=== PATIENT | female | born 1985 | race Caucasian/White ===

== ENCOUNTER 2019-12-31 18:22 | Inpatient (IN) | payer OTHER ==
[~2019-12-31 18:22] MED LIST: Dexamethasone 20 MG/5 ML VIAL ONE; Glycopyrrolate 0.2 MG/ML 5 ML SYRINGE ONE; Lidocaine 1% PF 5 ML VIAL ONE; Ondansetron PF 4 MG/2 ML Vial ONE; PROPOFOL 200 MG/20 ML VIAL ONE; Rocuronium Bromide 10 MG/ML (10ML VIAL) ONE; Succinylcholine Chloride 20 MG/ML 10 ml SYRINGE FS ONE
[2019-12-31] MEDS ORDERED: HYDROmorphone 0.5 MG/0.5 ML SYRINGE ONE (20:45)
[2019-12-31] MEDS ORDERED: Fentanyl 100 MCG/2 ML VIAL ONE (20:45)
[2019-12-31] MEDS ORDERED: Midazolam HCl 2 mg/2 ml Vial ONE (20:45)
[2019-12-31] MEDS ORDERED: Lidocaine 2% Jelly 5 ML TUBE ONE (20:45)
[2019-12-31] MEDS ORDERED: CEFAZOLIN 2 GM in Premix Bag 1 BAG IVPB SCH (21:00)
[2019-12-31] MEDS ORDERED: Promethazine HCl 25 MG/ML VIAL IM PRN ×2 (21:56→21:57)
[2019-12-31] MEDS ORDERED: Ketorolac Tromethamine 30 MG/ML VIAL IVP PRN (21:56)
[2019-12-31] MEDS ORDERED: Meperidine HCl/PF 25 MG/ML VIAL SLOW IVP PRN (21:56)
[2019-12-31] MEDS ORDERED: Ondansetron HCl/PF 4 MG/2 ML Vial IVP PRN (21:56)
[2019-12-31] MEDS ORDERED: Promethazine HCl 25 MG/ML VIAL SLOW IVP PRN (21:56)
[2019-12-31] MEDS ORDERED: HYDROmorphone 2 MG/ML VIAL SLOW IVP PRN (21:56)
[2019-12-31] MEDS ORDERED: Ondansetron PF 4 MG/2 ML Vial IVP PRN (21:57)
[2019-12-31] MEDS ORDERED: diphenhydrAMINE 25 MG CAP PO PRN (21:57)
[2019-12-31] MEDS ORDERED: diphenhydrAMINE 50 MG/ML VIAL IVP PRN (21:57)
[2019-12-31] MEDS ORDERED: fentaNYL Citrate/PF 2,000 MCG in Sodium Chloride 0.9% 60 ML IV PRN (21:57)
[2019-12-31] MEDS ORDERED: Zolpidem Tartrate 5 MG TAB PO PRN (21:57)
[2019-12-31] MEDS ORDERED: diphenhydrAMINE 50 MG/ML VIAL IM PRN (21:57)
[2019-12-31] MEDS ORDERED: Naloxone HCl 0.4 mg/ml Vial IV PRN (21:57)
[2019-12-31] MEDS ORDERED: Communication Order-Pharmacy FS SCH (22:00)
--- NOTE | 2020-01-01 00:46 | HP ---
CHIEF COMPLAINT: Left lower quadrant pain. HISTORY OF PRESENT ILLNESS: Ms. Hull is a 34-year-old white G3, P2, AB1, last menstrual period one week ago, who presents complaining of acute onset of left lower quadrant pain at 2:00 p.m. today. She states the pain is worsened. It has been associated with nausea, but she states she has not vomited. She was initially seen in [facility] and then sent to the [facility]. She was evaluated in the ER and had a CT which showed a 7 cm mass followed by an ultrasound that demonstrated a normal size uterus, a complex mass associated with the left ovary with no flow and a right ovary that appeared normal. She was then transferred from [facility] here with concern for ovarian torsion. PAST OBSTETRICAL HISTORY: Includes two previous section with tubal ligation as well as one spontaneous miscarriage requiring D and C. PAST MEDICAL HISTORY: None. PAST SURGICAL HISTORY: x2, the last one with a tubal ligation as well as the D and C as mentioned above. CURRENT MEDICATIONS: None. ALLERGIES: NO KNOWN ALLERGIES. SOCIAL HISTORY: She denies tobacco or drug use. She states she drinks occasionally. FAMILY HISTORY: Unremarkable. REVIEW OF SYSTEMS: Positive for nausea. Negative for fever or chills. She denies changes in bowel or bladder habits. PHYSICAL EXAMINATION: Upon admission, VITAL SIGNS: Stable. She is afebrile. GENERAL: She is hurting and appears most uncomfortable. CHEST: Clear to auscultation. CARDIOVASCULAR: Regular rate and rhythm. ABDOMEN: Soft but is tender to palpation on the left side. PELVIC: Deferred. LABORATORY DATA: White count 10.7, hemoglobin and hematocrit 13.9 and 41.8, platelet count 212,000. Urine test is negative. ASSESSMENT: 1. Suspected ovarian torsion. 2. History of previous sections. PLAN: In view of the patient's presentation and ultrasound that shows no flow to the associated mass, there is concern here for ovarian torsion. In view of her previous sections and the potential for scarring, we will defer laparoscopy and proceed with a mini-laparotomy. The patient understands the risks of the procedure including anesthesia, bleeding, infection, as well as damage to adjacent organs requiring repair, removal, or transfusion. She also understands that this may require removal of her tube and ovary as well. She understands all of the above and wishes to proceed. The OR has been notified. Job ID: [id number]
--- NOTE | 2020-01-01 01:41 | OP ---
DATE OF PROCEDURE: 12/31/2019 PREOPERATIVE DIAGNOSES: 1. Left adnexal mass. 2. Suspected adnexal torsion. POSTOPERATIVE DIAGNOSIS: Left adnexal torsion. HOSTED SERVICES ANALYST SURGEON: Kari Ramos DO, Resident Physician PROCEDURES: 1. Exploratory laparotomy. 2. Left salpingo-oophorectomy. ANESTHESIA: General endotracheal. ESTIMATED BLOOD LOSS: Less than 100 cc. COMPLICATIONS: None. PROPHYLAXIS: 2 g Ancef prior to incision. FINDINGS: 1. Multiple omental adhesions to anterior abdominal wall and anterior aspect of the uterus. 2. Left adnexal torsion. 3. Normal right ovary and tube with tubal changes consistent with tubal ligation. TECHNIQUE IN DETAIL: After good general endotracheal anesthesia was achieved, the patient was prepped and draped in usual sterile fashion in the supine position. A transverse incision was made through a pre-existing old surgical scar. The abdomen was then entered in layers. The abdominal cavity was opened and at this time, it could be seen that there were multiple omental adhesions. These were lysed and the pelvis was reviewed. At this time, it could be seen that there was a large necrotic left adnexal mass. The self-retaining retractor was placed and the bowel was packed away using wet lap packs. The anatomy was reviewed and at this time it could be seen that there was a large left adnexal torsion with a necrotic adnexa. The uterus was normal and small. The right adnexa showed a normal ovary and a normal tube but with changes consistent with tubal ligation. There was blood in both the anterior and posterior cul-de-sacs. Attention was then turned to the left adnexa. There was a large cyst that was drained to allow mobilization of the mass. It could be seen at this time that there were several twists in the left infundibulopelvic ligament. The twists were removed and the ureter was noted to be deep in the pelvis. The LigaSure device was then placed across the utero-ovarian and infundibulopelvic ligament complexes and complete hemostasis was obtained with resection of the mass. It was submitted for pathological analysis. The pelvis was thoroughly irrigated with normal saline. Good hemostasis was noted. The wet lap packs and self-retaining retractor were then removed. The omentum was straightened and the fascia was closed using 2 sutures of 0 Vicryl, brought laterally to the midline. The subcutaneous tissue was thoroughly irrigated and made dry using Bovie coagulation technique. The subcutaneous tissue was reapproximated using plain gut suture. The skin was closed with metal dharmesh. Sponge, lap, and needle counts were correct. The patient tolerated the procedure well and was taken to recovery room in good condition. Job ID: [id number] [facility]
[2020-01-01] MEDS: Lactated Ringer's 1,000 ML IV SCH ×3 (02:29→19:54)
[2020-01-01 06:09] LABS: Mean Corpuscular HGB CONC 34.2 g/dL (32.0-36.0); Mean Corpuscular Hemoglobin 30.2 pg (27.0-31.0); Mean Corpuscular Volume 88.2 fL (78.0-98.0); Mean Platelet Volume 10.7 fL (7.4-10.4); Platelet Count 186 thou/uL (130-400); RBC Distribution Width 11.4 % (11.5-14.5); Red Blood Cell (RBC) Count 4.29 mill/uL (4.20-5.40); White Blood Cell (WBC) Count 19.6 thou/uL (4.8-10.8)
--- NOTE | 2020-01-01 07:57 | PDOC.EVN ---
Event Note - Event Note Event Note: POD1 Resting comfortably this AM. VSS AF Abdomen soft, wound clean. H/H this AM= Plan: Routine postop care. PRESSURISED CONTAINER FILLER for pain. Clear liquids and advance.
[2020-01-01 13:02] LABS: SARS-CoV-2 MS2 Positive; SARS-CoV-2 N Gene Negative; SARS-CoV-2 S Gene Negative; SARS-CoV-2 by NAA Not Detected (NotDetected); SARS-CoV-2 orf1ab Negative
[2020-01-01] MEDS ORDERED: Acetaminophen 325 MG TAB PO PRN (15:43)
[2020-01-01] MEDS ORDERED: HYDROcodone/Acetaminophen 5/325 mg Tablet PO PRN (15:44)
[2020-01-01] MEDS ORDERED: Ibuprofen 800 MG TAB PO PRN (15:49)
[2020-01-01] MEDS: HYDROcodone/Acetaminophen 5/325 mg Tablet PO PRN (16:40)
[2020-01-02] MEDS: Lactated Ringer's 1,000 ML IV SCH (06:21)
[2020-01-02 07:56] VITALS: BP 119/72; TEMP 98.3
[2020-01-02] MEDS: HYDROcodone/Acetaminophen 5/325 mg Tablet PO PRN (07:59)
--- NOTE | 2020-01-03 11:41 | DIS ---
DATE OF ADMISSION: 12/31/2019 DATE OF DISCHARGE: 01/02/2020 ADMITTING DIAGNOSIS: Ovarian torsion. DISCHARGE DIAGNOSIS: Ovarian torsion. PROCEDURE: Exploratory laparotomy with left salpingo-oophorectomy. HOSPITAL COURSE: The patient is a 34-year-old female, who presented to the emergency room with acute pain, noted to have a torsed enlarged ovary and was taken to the operating room. Given the size, the patient received an exploratory laparotomy with left salpingo-oophorectomy. She is now postop day 2. She reports that she is having good pain control with oral medications. She is tolerating a diet, voiding on her own and ambulating. PHYSICAL EXAMINATION: VITAL SIGNS: Today; blood pressure is 119/72, temperature 98.3, pulse is 76, respiratory rate of 20, and saturating 95% on room air. GENERAL: She appears to be in no acute distress. She is alert, oriented, cooperative, and pleasant to interact with. HEENT: Head is normocephalic and atraumatic. SKIN: Incision is clean, dry, and intact with dharmesh. ABDOMEN: Soft. DISCHARGE INSTRUCTIONS: The patient is being discharged home with tramadol and ibuprofen for pain control. She also has been given instructions to follow up in 3 to 4 days with [facility] for staple removal and review of her pathology. The patient has been given instructions to seek medical attention should she experience fever, increasing pain, redness, drainage from her incision site. She has been given instructions for 15 pounds weight limit for the next 4 to 6 weeks. No driving for 2 weeks. Job ID: [id number]
== END 2020-01-02 09:45 | disposition home or self-care (01) | DRG 743 ==
LOC: OBSVTOIN 18:22 → 3SW 18:22 → 3SE 01-01 15:45
PROVIDERS: ADMIT Obstetrics & Gynecology; ATTEND Obstetrics & Gynecology
PROC: 0UT60ZZ Resection of Left Fallopian Tube, Open Approach (ICD-10-PCS; principal; 2019-12-31)
PROC: 0UT10ZZ Resection of Left Ovary, Open Approach (ICD-10-PCS; 2019-12-31)
DX: N83.512 Torsion of left ovary and ovarian pedicle (principal); Z20.828 Contact with and (suspected) exposure to other viral communicable diseases
CPT/HCPCS: 36415; 76856; 85027; 86850; 86900; 86901; 87635; 88307; 96374; 96375; 96376; J1100; J1170; J2250; J2270; J2405; J2704; J3010; U0003